=== PATIENT | male | born 1965 | race Two or more races ===

== ENCOUNTER 2018-12-06 20:43 | Emergency (ER) | payer MEDICAID ==
[~2018-12-06] VITALS: Ht 182.9 cm; Wt 111.1 kg
[2018-12-06 21:00] VITALS: BP 135/83
== END 2018-12-06 21:27 | disposition left against medical advice (07) ==
LOC: ER 20:47
DX: Z02.89 Encounter for other administrative examinations (principal); Z53.21 Procedure and treatment not carried out due to patient leaving prior to being seen by health care provider